=== PATIENT | male | born 1935 | race Caucasian/White ===

== ENCOUNTER 2019-04-17 16:46 | Inpatient (IN) | payer MEDICARE ==
[~2019-04-17] VITALS: Ht 165.1 cm; Wt 57.6 kg
--- NOTE | 2019-04-17 18:09 | Diagnostic Imaging Report ---
EXAMINATION: CHEST SINGLE (PORTABLE) INDICATION: Can't eat. Weakness. COMPARISON: None FINDINGS: AP view TUBES and LINES: None. LUNGS: Lungs are hyper inflated. Airspace opacities in the left lung base. PLEURA: Trace pleural effusion. Left hemidiaphragm is obscured. HEART AND MEDIASTINUM: The cardiomediastinal silhouette is unremarkable. There are atherosclerotic calcifications within the aorta. BONES AND SOFT TISSUES: No acute osseous lesion. Soft tissues are unremarkable. UPPER ABDOMEN: No free air under the diaphragm. IMPRESSION: 1. Airspace opacity in the left lung base with likely small left pleural effusion. This likely represents pneumonia. 2. Trace right pleural effusion. Signed by: Dr. Dago Ch M.D. on 04/17/2019 6:06 PM
--- NOTE | 2019-04-17 18:16 | Diagnostic Imaging Report ---
Exam: Head CT without contrast History: Altered mental status Comparison studies: None Technique: Axial images were obtained from the skull base to the vertex. Coronal and sagittal images reconstructed from the axial data. Dose modulation, iterative reconstruction, and/or weight based adjustment of the mA/kV was utilized to reduce the radiation dose to as low as reasonably achievable. Radiation dose: Total DLP: 921 mGy*cm. Estimated effective dose: DLP x 0.015 Intravenous contrast: None Findings: Scalp: No abnormalities. Bones: No fractures, blastic or lytic lesions. Brain sulci: Mildly prom Ventricles: Mild compensatory dilatation. No hydrocephalus. Extra-axial spaces: No masses, no fluid collection. Parenchyma: No mass, acute hemorrhage or acute or chronic cord vascular insults. A few scattered hypodensities in the supratentorial white matter are nonspecific but most compatible with chronic small vessel ischemic changes. Sellar/suprasellar region: No abnormalities. Craniocervical junction: Patent foramen magnum. No Chiari one malformation. Incidental findings: Lens replacements for previous cataract surgery Atherosclerotic calcifications in the carotid siphons. IMPRESSION: No acute intracranial abnormalities. Chronic findings: 1. Mild generalized brain volume loss. 2. Mild microvascular ischemic changes. Signed by: Dr. Jean Pierre Vee M.D. on 04/17/2019 6:12 PM
[2019-04-17 18:25] LABS: BASOPHILS % 0.4 % (0.0-1.0); EOSINOPHILS # (AUTO) 0.2 (0.0-0.4); EOSINOPHILS % 3.7 % (0.0-6.0); HEMATOCRIT 32.2 % (38.2-49.6); LYMPHOCYTES # (AUTO) 0.9 (1.0-3.2); LYMPHOCYTES % 20.5 % (18.0-39.1); MEAN CORPUSCULAR HEMOGLOBIN 32.1 pg (28-32); MEAN CORPUSCULAR HGB CONC 34.2 g/dL (31-35); MEAN CORPUSCULAR VOLUME 93.9 fL (81-99); MONOCYTES # (AUTO) 0.5 (0.2-0.8); MONOCYTES % 10.9 % (4.4-11.3); NEUTROPHILS # (AUTO) 2.9 (2.1-6.9); NEUTROPHILS % 64.1 % (38.7-80.0); PLATELET COUNT 147 x10e3/uL (140-360); RED BLOOD COUNT 3.43 x10e6/uL (4.3-5.7); RED CELL DISTRIBUTION WIDTH 13.6 % (11.7-14.4)
[2019-04-17 18:38] LABS: INR 0.95; PROTHROMBIN TIME 13.2 seconds (11.9-14.5)
[2019-04-17 18:44] LABS: ALBUMIN 3.4 g/dL (3.5-5.0); ANION GAP 18.3 mmol/L (8-16); CALCIUM 9.5 mg/dL (8.4-10.2); CREATININE, SERUM 1.46 mg/dL (0.72-1.25); POTASSIUM 4.3 mmol/L (3.5-5.1)
[2019-04-17] MEDS ORDERED: IPRATROPIUM BROMIDE 0.02% 2.5 ML NEB NEB PRN (19:00)
[2019-04-17] MEDS ORDERED: ALBUTEROL SULF 0.083% NEB SOLN 3 ML NEB NEB PRN (19:00)
[2019-04-17 19:03] LABS: CREATINE KINASE MB 0.7 ng/mL (0-5.0); THYROID STIMULATING HORMONE 4.311 uIU/mL (0.350-4.940)
[2019-04-17] MEDS: SODIUM CHLORIDE 0.9% 1000ML 1,000 ML IV SCH (19:20)
--- OUTSIDE RECORDS SUMMARY | 2019-04-17 19:20 | XMS REPORT ---
[facility] Address Unknown Phone Unavailable Care Team Providers Care Winder Tender Name Role Phone Arina LIPSCOMB Unavailable Unavailable Problems This patient has no known problems. Allergies, Adverse Reactions, Alerts This patient has no known allergies or adverse reactions. Medications This patient has no known medications. Results Test Description Test Time Test Comments Text Results Atomic Results Result Comments CT BRAIN WO 2019-04-17 18:09:00 [facility] [address] [place] [address] Patient Name: DHRUV MENDEZ MR #: [id number] : 1935 Age/Sex: 83/M Req #: [id number] Adm Physician: Ordered by: SHEILA PINEDA GLASS SCULLION Report #: [id number] Location: ER Room/Bed: Procedure: [id number] CT/CT BRAIN WO Exam Date: 04/17/19 Exam Time: 1725 REPORT STATUS: Signed Exam: Head CT without contrast History: Altered mental st atus Comparison studies: None Technique: Axial images were obtained from the skull base to the vertex. Coronal and sagittal images reconstructed from the axial data. Dose modulation, iterative reconstruction, and/or weight based adjustment of the mA/kV was utilized to reduce the radiation dose to as low as reasonably achievable. Radiation dose: Total DLP: 921 mGy*cm. Estimated effective dose: DLP x 0.015 Intravenous contrast: None Findings: Scalp: No abnormalities. Bones: No fractures, blastic or lytic lesions. Brain sulci: Mildly prom Ventricles: Mild compensatory dilatation. No hydrocephalus. Extra-axial spaces: No masses, no fluid collection. Parenchyma: No mass, acute hemorrhage or acute or chronic cord vascular insults. A few scattered hypodensities in the supratentorial white matter are nonspecific but most compatible with chronic small vessel ischemic changes. Sellar/suprasellar region: No abnormalities. Crani ocervical junction: Patent foramen magnum. No Chiari one malformation. Incidental findings: Lens replacements for previous cataract surgery Atherosclerotic calcifications in the carotid siphons. IMPRESSION: No acute intracranial abnormalities. Chronic findings: 1. Mild generalized brain volume loss. 2. Mild microvascular ischemic changes. Signed by: Dr. Janae Vee M.D. on 04/17/2019 6:12 PM Dictated By: JANAE VEE MD 11 Transcribed By: ROSALIE on 04/17/191811 COPY TO: SHEILA PINEDA NP CHEST SINGLE (PORTABLE) 2019-04-17 18:05:00 [place] [address] Patient Name: DHRUV MENDEZ MR #: [id number] : 1935 Age/Sex: 83/M Req #: [id number] Adm Physician: Ordered by: SHEILA PINEDA NP Report #: [id number] Location: ER Room/Bed: Procedure: [id number] DX/CHEST SINGLE (PORTABLE) Exam Date: 04/17/19 Exam Time: 1725 REPORT STATUS: Signed EXAMINATION: CHEST SINGLE (PORTABLE) I NDICATION: Can't eat. Weakness. COMPARISON: None FINDINGS: AP view TUBES and LINES: None. LUNGS: Lungs are hyper inflated. Airspace opacities in the left lung base. PLEURA: Trace pleural effusion. Left hemidiaphragm is obscured. HEART AND MEDIASTINUM: The cardiomediastinal silhouette is unremarkable. There are atherosclerotic calcifications within the aorta. BONES AND SOFT TISSUES: No acute osseous lesion. Soft tissues are unremarkable. UPPER ABDOMEN: No free air under the diaphragm. IMPRESSION: 1. Airspace opacity in the left lung base with likely small left pleural effusion. This likely represents pneumonia. 2. Trace right pleural effusion. Signed by: Dr. Shalini Mora M.D. on 04/17/2019 6:06 PM Dictated By: SHALINI MORA MD 05 Transcribed By: ROSALIE on 04/17/191805 COPY TO: SHEILA PINEDA NP
[2019-04-17] MEDS: CEFTRIAXONE SOD 1 GM/NS 50 ML 50 ML IV SCH (19:21)
[2019-04-17] MEDS ORDERED: ALBUTEROL/IPRATROPIUM 3 ML NEB NEB PRN (19:30)
[2019-04-17] MEDS ORDERED: MULTI-VITAMIN1 EACH (19:40)
[2019-04-17] MEDS ORDERED: METFORMIN HCL500 MG PO (19:40)
[2019-04-17] MEDS ORDERED: NIFEDIPINE ER30 M1 PO (19:40)
[2019-04-17] MEDS ORDERED: FAMOTIDINE20 MG PO ×2 (19:40)
[2019-04-17] MEDS ORDERED: LOVASTATIN40 MG PO (19:40)
[2019-04-17] MEDS ORDERED: MYSOLINE250 MG PO (19:40)
[2019-04-17] MEDS ORDERED: METOPROLOL SUCC50 MG PO (19:40)
[2019-04-17] MEDS ORDERED: ASPIRIN81 MG PO (19:40)
[2019-04-17] MEDS ORDERED: NIFEDIPINE CR 30 MG TAB PO ONE (20:00)
[2019-04-17] MEDS ORDERED: NIFEDIPINE 10 MG CAP PO ONE (20:00)
[2019-04-17] MEDS: AZITHROMYCIN 500MG/NS 250 ML 250 ML IV SCH (20:10)
[2019-04-17 23:45] VITALS: BP_SYST 168; BP_SYST 171; BP_DIAS 77; BP_DIAS 88
--- NOTE | 2019-04-17 23:45 | NUR ---
PATIENT RECEIVED FROM EMERGENCY DEPARTMENT PER STRETCHER AT 2230. HE'S ALERT AND ORIENTED TO SELF, PLACE AND TIME. LUNGS SOUNDS CLEAR, BRUISES TO THE ARMS, SMALL SORE TO THE RIGHT MINOR WITH SCAB INTACT AND REDNESS TO THE SACRUM. NON PITTING EDEMA TO THE FEET, THE LEGS ARE COOL TO TOUCH, UNABLE TO PALPATE THE PULSES IN THE FEET, HOWEVER THE PULSES ARE ASSESSED USING DOPPLER. PATIENT DENIES PAIN, CALL LIGHT AND URINAL WITHIN EASY REACH, FAMILY MEMBERS AT THE BEDSIDE.
[2019-04-18] VITALS (9 sets, daily range): BP systolic 142–199; BP diastolic 74–85
[2019-04-18] MEDS ORDERED: VITAMIN D400 UNIT PO (00:56)
--- NOTE | 2019-04-18 03:43 | NUR ---
PATIENT SOUNDLY ASLEEP, NO RESPIRATORY DISTRESS OBSERVED. BED ALARM ON, CALL LIGHT WITHIN EASY REACH.
--- NOTE | 2019-04-18 05:15 | NUR ---
AT 0440 THE BED ALARM WENT OFF, PRIMARY NURSE RAN TO THE ROOM AND FOUND THE SITTING ON THE FLOOR. HE STATED "I WAS TRYING TO REACH OUT FOR SOMETHING". HIS DIAPER WAS DRY, URINAL OFFER AND HE VOID SMALL AMOUNT OF YELLOW COLOR URINE. HIS IV WAS NOTED OUT, SKIN ASSESSED, NO NEW BRUISES OR OPEN AREAS NOTED. HE WAS ASSISTED BACK TO THE BED. HE'S ALERT AND ORIENTED X3, HE DENIES PAIN, VITAL SIGNS STABLE. PATIENT ATTEMPTING TO GET OUT OF BED AGAIN IN MY PRESENCE. HE'S ASSISTED TO THE WHEEL CHAIR, O2@2L/NC AND HE'S BROUGHT TO THE NURSES STATION FOR CLOSE OBSERVATION. CALL AND SPOKE WITH DR REYNOLDS, NEW ORDERS RECEIVED.
[2019-04-18 05:58] LABS: BASOPHILS % 0.6 % (0.0-1.0); EOSINOPHILS # (AUTO) 0.2 (0.0-0.4); EOSINOPHILS % 3.2 % (0.0-6.0); HEMATOCRIT 34.1 % (38.2-49.6); HEMOGLOBIN 11.3 g/dL (14.0-18.0); LYMPHOCYTES # (AUTO) 1.3 (1.0-3.2); LYMPHOCYTES % 19.3 % (18.0-39.1); MEAN CORPUSCULAR HEMOGLOBIN 31.4 pg (28-32); MEAN CORPUSCULAR HGB CONC 33.1 g/dL (31-35); MEAN CORPUSCULAR VOLUME 94.7 fL (81-99); MONOCYTES # (AUTO) 0.8 (0.2-0.8); MONOCYTES % 11.5 % (4.4-11.3); NEUTROPHILS # (AUTO) 4.3 (2.1-6.9); NEUTROPHILS % 64.8 % (38.7-80.0); PLATELET COUNT 148 x10e3/uL (140-360); RED CELL DISTRIBUTION WIDTH 13.4 % (11.7-14.4)
[2019-04-18 06:14] LABS: CALCIUM 8.9 mg/dL (8.4-10.2); CREATININE, SERUM 1.22 mg/dL (0.72-1.25)
[2019-04-18 06:41] LABS: CREATINE KINASE MB 0.9 ng/mL (0-5.0)
--- NOTE | 2019-04-18 07:36 | NUR ---
CHANGE OF SHIFT WALKING ROUNDS MADE, SITTER WITH THE PATIENT. HIS CONDITION IS STABLE WITHOUT RESPIRATORY DISTRESS AND HE DENIES PAIN. IV #22 GAUGE INSERTED TO THE LEFT HAND, PATIENT TOLERATED PROCEDURE WELL. HE'S NOW LEAVING THE UNIT TO RADIOLOGY FOR CT SCAN ORDERED.
[2019-04-18] MEDS: CEFTRIAXONE SOD 1 GM/NS 50 ML 50 ML IV SCH ×2 (08:07→18:13)
--- NOTE | 2019-04-18 08:33 | Diagnostic Imaging Report ---
EXAM: CT Pelvis WITHOUT contrast INDICATION: ^FALL ^Y COMPARISON: None. TECHNIQUE: The pelvis was scanned utilizing a multidetector helical scanner without administration of IV contrast. Absence of intravenous contrast decreases sensitivity for detection of focal lesions and vascular pathology. Coronal and sagittal reformations were obtained. Routine protocol was performed. IV CONTRAST: None. ORAL CONTRAST: None RADIATION DOSE: Total DLP: 122.3 mGy*cm Estimated effective dose: (DLP x 0.015 x size factor) mSv COMPLICATIONS: None FINDINGS: LINES and TUBES: None. GI TRACT: The partially visualized bowel appears unremarkable. PELVIC ORGANS/BLADDER: Multiple metallic seeds in the prostate. The urinary bladder is moderately distended. LYMPH NODES: No lymphadenopathy. VESSELS: Unremarkable. PERITONEUM / RETROPERITONEUM: No free air or fluid. BONES: Unremarkable. SOFT TISSUES: Unremarkable. IMPRESSION: No acute abnormalities within the pelvis. Signed by: Dr. Sandra Lopez M.D. on 04/18/2019 8:30 AM
--- NOTE | 2019-04-18 08:41 | Diagnostic Imaging Report ---
Exam: Head CT without contrast History: Multiple fall today, altered mental status Comparison studies: Head CT 04/17/2019 Technique: Axial images were obtained from the skull base to the vertex. Coronal and sagittal images reconstructed from the axial data. Dose modulation, iterative reconstruction, and/or weight based adjustment of the mA/kV was utilized to reduce the radiation dose to as low as reasonably achievable. Radiation dose: Total DLP: 921 mGy*cm. Estimated effective dose: DLP x 0.015 Intravenous contrast: None Findings: Scalp: No abnormalities. Bones: No fractures, blastic or lytic lesions. Brain sulci: Mildly prominent. Ventricles: Mild compensatory dilatation. No hydrocephalus. Extra-axial spaces: No masses, no fluid collection. Parenchyma: No mass, acute hemorrhage or acute or chronic cortical insults. A few scattered ill-defined hypodensities in the supratentorial white matter are nonspecific but are most compatible with chronic microvascular ischemic changes. Tiny chronic right cerebellar insult is retrospectively visualized on the prior exam. Sellar/suprasellar region: No abnormalities. Craniocervical junction: Patent foramen magnum. No Chiari one malformation. Incidental findings: Limbs replacements for previous cataract surgery Atherosclerotic calcifications in the carotid siphons.. IMPRESSION: No acute intracranial abnormalities. Chronic findings: 1. Mild parenchymal volume loss. 2. Mild microvascular ischemic changes. 3. Tiny right cerebellar insult. Signed by: Dr. Jean Pierre Vee M.D. on 04/18/2019 8:38 AM
--- NOTE | 2019-04-18 08:52 | Diagnostic Imaging Report ---
EXAMINATION: CHEST SINGLE (PORTABLE) INDICATION: ^PNEMONIA ^[id number] ^0730 ^Y COMPARISON: Chest radiograph 04/17/2019 FINDINGS: AP view TUBES and LINES: None. LUNGS: Lungs are well inflated. Left lower lobe consolidation, unchanged. Mild reticular opacities in the right lower lobe, unchanged. There appears to be fewer scattered calcified granulomas throughout the right lung. Mild scarring in both upper lobes is better seen on prior exam. PLEURA: Small left pleural effusion, unchanged. No pneumothorax. HEART AND MEDIASTINUM: The cardiomediastinal silhouette is unremarkable.. BONES AND SOFT TISSUES: No acute osseous lesion. Soft tissues are unremarkable. UPPER ABDOMEN: No free air under the diaphragm. IMPRESSION: Left lower lobe consolidation with adjacent small left pleural effusion consistent with pneumonia. Recommend follow-up until resolution. Signed by: Dr. Sandra Lopez M.D. on 04/18/2019 8:48 AM
[2019-04-18] MEDS: AZITHROMYCIN 500MG/NS 250 ML 250 ML IV SCH (09:34)
[2019-04-18] MEDS: SODIUM CHLORIDE 0.9% 1000ML 1,000 ML IV SCH ×2 (09:34→15:16)
[2019-04-18] MEDS ORDERED: DEXTROSE 50% SYRINGE 50 ML IV PRN (13:30)
[2019-04-18 14:16] LABS: CREATINE KINASE MB 0.9 ng/mL (0-5.0)
--- NOTE | 2019-04-18 16:07 | Progress Note ---
DATE: ADDENDUM: I had a long discussion with the patient's daughter at bedside in terms of code status. According to her, the patient always wanted to be DNR. She does not want any CPR or any intubation. She does not have any medical power of commercial attorney paperwork or any advance directives available at this time. The patient is only alert and oriented x2, and next of kin is the daughter who is currently at bedside. At this time, DNR has been placed in the system as per daughter's wishes and according to her that was his wishes in the past as well. MD CHITO Blandon/MODL /[id number]
[2019-04-18] MEDS: NIFEDIPINE CR 30 MG TAB PO SCH (16:28)
[2019-04-18] MEDS: FAMOTIDINE 20 MG TAB PO SCH (16:28)
[2019-04-18] MEDS ORDERED: PRIMIDONE 50 MG TAB PO SCH (17:00)
[2019-04-18] MEDS ORDERED: METFORMIN HCL 500 MG TAB PO SCH (17:00)
--- NOTE | 2019-04-18 19:00 | NUR ---
BEDSIDE SHIFT REPORT PERFORMED, RECEIVED PT LAYING SEMI FOWLERS IN BED, RESTING, 16RR/MIN. RR EVEN AND NON-LABORED, O2 BY NC AT 3L. NO S/SX OF DISTRESS NOTED. SITTER AT BEDSIDE. LEFT PT LAYING SEMI FOWLERS IN BED, BED IN LOW LOCKED POSITION, SIDE RAILS UPX2, CALL LIGHT AND PHONE WITHIN REACH.
--- NOTE | 2019-04-18 19:08 | NUR ---
SHIFT CHANGE REPORT GIVEN TO CRICKET Snell RN.
--- NOTE | 2019-04-18 20:43 | History and Physical ---
CHIEF COMPLAINT: Frequent falls. HISTORY OF PRESENT ILLNESS: This is an 83-year-old male who has a history of type 2 diabetes and hypertension who apparently according to the daughter, very poor historian. He has been having multiple falls and questionable confusion over the last 2-3 weeks. After further investigation, it seems that this patient has been having worsening confusion over the last several months because she cannot even recall when the last time she had a pure conversation with her father. He was never diagnosed with any dementia in the past. Based on the story and talking to her, it seems like her father has been progressively getting worse in terms of his memory as well as with his ambulation, which is towards dementia. She denies any slurred speech, facial drooping, any weakness, or any seizure-like activity. No reports of chest pain or palpitations. On arrival here, he was found to have a pulmonary infiltrate concerning for underlying infection leading to his underlying frequent falls and confusion. The patient was seen and evaluated at bedside. He was alert, awake, and oriented x2. Evaluated at bedside. All questions were answered at bedside. According to the daughter, the patient always wanted to be DNR. He does not have any documentation available at this time. The next of kin is the daughter. The patient is still confused, unable to get true information from him. According to the daughter, the patient wanted to be DNR. The DNR order has been placed in the system. REVIEW OF SYSTEMS: Pertinent positives: Frequent falls, confusion, cough, and congestion. Pertinent negatives: Denies any chest pain, palpitation, dysuria, hematuria, frequency, urgency, lightheadedness, dizziness, abdominal pain, headaches, shortness of breath, cough, congestion, fever, or any other complaints. The rest of 14-point review of systems has been reviewed with the patient and is negative. ALLERGIES: NO KNOWN DRUG ALLERGIES. HOME MEDICATIONS: Aspirin 81 mg daily, Pepcid 20 mg b.i.d., lovastatin 40 mg daily, metformin 500 mg p.o. b.i.d., metoprolol ER 50 mg daily, and nifedipine 60 mg p.o. b.i.d. PAST MEDICAL HISTORY: Hypertension, type 2 diabetes, likely underlying dementia, and frequent falls. PAST SURGICAL HISTORY: Unknown. FAMILY HISTORY: Hypertension and diabetes. SOCIAL HISTORY: Lives with his daughter. No reports of drugs or any alcohol. PHYSICAL EXAMINATION: VITAL SIGNS: Temperature is 97.6, pulse 82, respiratory rate is 20, blood pressure 142/74, and pulse ox 100% on room air. GENERAL: Not in acute distress. Alert and oriented x3. Cooperative on examination. HEENT: Head is normocephalic and atraumatic. Eyes; pupils are equal, round and reactive to light bilaterally. Extraocular movements are intact bilaterally. Throat, no evidence of any erythema or exudates in the posterior pharynx. Has poor dentition. NECK: Supple. Good range of motion throughout. PULMONARY: Clear to auscultation bilaterally. No wheezing, no rales, no rhonchi, and no crackles appreciated. CARDIOVASCULAR: Positive S1, S2. No murmurs, rubs, or gallops appreciated. ABDOMEN: Soft, nondistended, and nontender to palpation. Bowel sounds present. MUSCULOSKELETAL: Strength is 5/5 throughout. No evidence of any muscle deficits on examination. No weakness appreciated. NEUROLOGICAL: Cranial nerves II through XII grossly intact. No evidence of any neurological deficits on exam. SKIN: Intact. Warm to touch. Good capillary refill. PSYCHIATRIC: Normal affect and mood. EXTREMITIES: No edema. Good range of motion throughout. LABORATORY DATA: Lab findings show white count 6.5, hemoglobin 11.0, hematocrit 34, platelets of 148. Coagulation, PT 13, INR 0.95, PTT 32. Chemistry, sodium 144, potassium 4, chloride 108, bicarb 21, anion gap 19, BUN is 18, creatinine 1.2, glucose is 164. Troponins were negative. BNP is 247. Albumin is 3.4. TSH is 4.3. MICROBIOLOGY: None. IMAGING STUDIES: Chest x-ray, airspace opacity in the left lung base likely shows small pleural effusion. Likely represent pneumonia. CT brain, no acute abnormality seen. Chest x-ray, left lower lobe consolidation with adjacent small left pleural effusion consistent with pneumonia. CT pelvis negative. CT brain repeat after the patient had a fall, shows no acute abnormality. IMPRESSION: 1. Metabolic encephalopathy likely due to be from infection from community-acquired pneumonia. 2. Community-acquired pneumonia. Likely baseline dementia with worsening cognition. 3. Type 2 diabetes. 4. Hypertension. PLAN: At this time, we will continue with IV antibiotics. CT brain x2 was negative and he had a fall last night that showed no acute findings. But due to the fact that the daughter was so demanding about further workup, I will do not feel like I will be able to convince her. I will go ahead and get an MRI of the brain. I do not feel like the patient has any stroke-like symptoms on examination. No slurred speech, no facial drooping, no weakness anywhere and his progressive decline has been like this for weeks now. I will go ahead and order an MRI of the brain. Restart all home medications. There was no UA performed in the ER. We will go ahead and get that done as well. Blood cultures were not performed prior to any antibiotics. The UA will likely be sterile and the patient was already given antibiotics by the ER. Get PT, OT evaluation. Case management for fdc facility placement. MD CHITO Blandon/PUSHPA /[id number]
[2019-04-18 22:41] LABS: BILIRUBIN,URINE NEGATIVE (NEGATIVE); CLARITY,URINE CLEAR (CLEAR); COLOR,URINE YELLOW (YELLOW); KETONES,URINE 1+ (NEGATIVE); LEUKOCYTE ESTERASE ,URINE SMALL (NEGATIVE); NITRITE,URINE NEGATIVE (NEGATIVE); PROTEIN,URINE DIPSTICK NEGATIVE (NEGATIVE); URINE UROBILINOGEN 0.2 mg/dL (0.2 - 1)
[2019-04-18 22:52] LABS: BACTERIA,URINE MANY /HPF; EPITHELIAL CELLS,URINE MODERATE /LPF; RBC,URINE >50 /HPF (0-5)
[2019-04-19 00:30] VITALS: BP 162/76
--- NOTE | 2019-04-19 00:30 | NUR ---
APPLIED ALTERNATING PRESSURE PUMP TO MATTRESS.
[2019-04-19] MEDS: SODIUM CHLORIDE 0.9% 1000ML 1,000 ML IV SCH ×2 (01:56→22:46)
[2019-04-19 06:14] LABS: BASOPHILS % 0.4 % (0.0-1.0); EOSINOPHILS # (AUTO) 0.3 (0.0-0.4); EOSINOPHILS % 5.7 % (0.0-6.0); HEMATOCRIT 28.6 % (38.2-49.6); HEMOGLOBIN 9.4 g/dL (14.0-18.0); LYMPHOCYTES # (AUTO) 1.1 (1.0-3.2); LYMPHOCYTES % 19.9 % (18.0-39.1); MEAN CORPUSCULAR HEMOGLOBIN 31.2 pg (28-32); MEAN CORPUSCULAR HGB CONC 32.9 g/dL (31-35); MONOCYTES # (AUTO) 0.6 (0.2-0.8); MONOCYTES % 11.2 % (4.4-11.3); NEUTROPHILS # (AUTO) 3.4 (2.1-6.9); NEUTROPHILS % 62.6 % (38.7-80.0); PLATELET COUNT 117 x10e3/uL (140-360); RED BLOOD COUNT 3.01 x10e6/uL (4.3-5.7); RED CELL DISTRIBUTION WIDTH 13.6 % (11.7-14.4)
[2019-04-19] MEDS: CEFTRIAXONE SOD 1 GM/NS 50 ML 50 ML IV SCH ×2 (06:30→18:55)
[2019-04-19 06:35] LABS: ANION GAP 12.8 mmol/L (8-16); BLOOD UREA NITROGEN 18 mg/dL (7-26); BUN/CREATININE RATIO 17 (6-25); CALCIUM 8.2 mg/dL (8.4-10.2); CARBON DIOXIDE 24 mmol/L (22-29); CHLORIDE 111 mmol/L (98-107); CREATININE, SERUM 1.03 mg/dL (0.72-1.25); EST GLOMERULAR FILTRATION RATE > 60 ML/MIN (60-); GLUCOSE 79 mg/dL (74-118); POTASSIUM 3.8 mmol/L (3.5-5.1); SODIUM 144 mmol/L (136-145)
--- NOTE | 2019-04-19 07:25 | NUR ---
PATIENT IN BED RESTING WITH EYES CLOSED, NO RESPIRATORY DISTRESS OBSERVED. 1:1 SITTER AT BED SIDE. O2 IN PLACE VIA N/C, IV FLUID IN PROGRESS. BED IN LOWER POSITION AND LOCKED, CALL LIGHT AT REACH.
[2019-04-19 07:30] VITALS: BP 193/90
[2019-04-19 07:38] VITALS: BP 193/90
--- NOTE | 2019-04-19 08:58 | Diagnostic Imaging Report ---
History:Fall, hit face last night. Comparison studies: None Technique: Axial images were obtained through the maxillofacial region. Coronal and sagittal images reconstructed from the axial data. Intravenous contrast: None Dose modulation, iterative reconstruction, and/or weight based adjustment of the mA/kV was utilized to reduce the radiation dose to as low as reasonably achievable. Findings: Soft tissues: No abnormalities. Bones: No fractures or bone abnormalities. Orbits: Globes: No acute abnormality. Bilateral cataract surgery changes. Extra or intraconal abnormalities: None. Paranasal sinuses: Clear Atherosclerotic calcifications of the carotid bulbs and carotid siphons. Degenerative changes of the upper cervical spine partially visualized. IMPRESSION: 1. No acute facial abnormality Signed by: DR Chirag Guerrier M.D. on 04/19/2019 8:54 AM
[2019-04-19] MEDS: NIFEDIPINE CR 30 MG TAB PO SCH ×2 (09:38→17:47)
[2019-04-19] MEDS: METOPROLOL SUCCINATE 50 MG TAB XL PO SCH (09:38)
[2019-04-19] MEDS: AZITHROMYCIN 500MG/NS 250 ML 250 ML IV SCH (09:38)
[2019-04-19] MEDS: FAMOTIDINE 20 MG TAB PO SCH ×2 (09:38→17:47)
[2019-04-19] MEDS: ASPIRIN 81 MG CHEW TAB PO SCH (09:38)
--- NOTE | 2019-04-19 11:19 | NUR ---
CALL RECEIVED FROM RADIOLOGY STATING THAT PATIENT WILL BE GOING FOR MRI OF BRAIN AROUND 1430. PATIENT NOTIFIED, IN BED WITH CALL LIGHT AT REACH. 1:1 SITTER AT BED SIDE.
[2019-04-19 11:25] VITALS: BP 157/73
--- NOTE | 2019-04-19 13:23 | Progress Note ---
DATE: 04/19/2019 Medicine Progress Note SUBJECTIVE: The patient was working with physical therapy this morning. He is very weak and cachectic on exam. I feel like the patient likely has some underlying dementia, which the daughter is in denial. No overnight events. Vital signs were stable. PHYSICAL EXAMINATION: VITAL SIGNS: Temperature 98.8, pulse 74, respiratory rate 18, blood pressure is 157/73, pulse ox 100% on 3 L nasal cannula. GENERAL: Not in acute distress. Alert and oriented x3. Cooperative on examination. HEENT: Head is normocephalic and atraumatic. Eyes; pupils are equal, round and reactive to light bilaterally. Extraocular movements are intact bilaterally. Throat, no evidence of any erythema or exudates in the posterior pharynx. Has poor dentition. NECK: Supple. Good range of motion throughout. PULMONARY: Clear to auscultation bilaterally. No wheezing, no rales, no rhonchi, and no crackles appreciated. CARDIOVASCULAR: Positive S1, S2. No murmurs, rubs, or gallops appreciated. ABDOMEN: Soft, nondistended, and nontender to palpation. Bowel sounds present. MUSCULOSKELETAL: Strength is 5/5 throughout. No evidence of any muscle deficits on examination. No weakness appreciated. NEUROLOGICAL: Cranial nerves II through XII grossly intact. No evidence of any neurological deficits on exam. SKIN: Intact. Warm to touch. Good capillary refill. PSYCHIATRIC: Normal affect and mood. EXTREMITIES: No edema. Good range of motion throughout. LABORATORY DATA: Lab findings show white count of 5.4, hemoglobin 9.4, hematocrit 28.6, platelets of 117. Chemistries reviewed and stable. Urinalysis reviewed. Urine cultures are pending. IMPRESSION: 1. Metabolic encephalopathy secondary to community-acquired pneumonia and also secondary to underlying dementia. 2. Community-acquired pneumonia. 3. Type 2 diabetes. 4. Hypertension. 5. Likely baseline dementia with progression. PLAN: At this time, we will continue with IV antibiotics. Urine cultures are pending. CT brain x2 is negative. MRI of the brain has been ordered. CT of the face was negative. He is working with PT and OT. Order for group home has been placed and Case Management has been notified. We will await for the urine culture. Continue working with PT and OT. Once he is approved, hopefully we can discharge in the next 2 to 3 days. MD CHITO Blandon/PUSHPA /[id number]
--- NOTE | 2019-04-19 14:36 | NUR ---
ORDERS FOR SNF EVAL CM MET WITH PT'S DTR MARGARITO MENDEZ AND SHE CHOSE [facility] CHOICE LETTER SIGNED RTF PLACED IN PACKET AT [facility]K [facility] WITH [facility] COMING TO GET CLINICALS BARRIER TO TRANSFER TO SNF IS ONE ON ONE SITTER ORDERED PRN P.T. EVAL PENDING
--- NOTE | 2019-04-19 14:37 | NUR ---
PATIENT OFF UNIT TO RADIOLOGY.
--- NOTE | 2019-04-19 14:39 | NUR ---
OUT OF HOSPITAL DNR PLACED ON FRONT OF CHART FOR DR REYNOLDS TO SIGN 1 ON 1 SITTER CHANGED TO PRN ASKED NURSE YAMIL TO MOVE PT NEAR NURSES STATION AND PUT ON BED ALARM IF POSSIBLE
--- NOTE | 2019-04-19 15:18 | NUR ---
PATIENT BACK TO UNIT FROM RADIOLOGY. IN BED WITH CALL LIGHT AT REACH. SITTER AT BED SIDE.
[2019-04-19 15:43] VITALS: BP 176/81
--- NOTE | 2019-04-19 16:05 | Diagnostic Imaging Report ---
History: Confused Comparison studies: CT head 04/18/2019 Technique: Sagittal T2; axial DWI, FLAIR, MPGR, T1, Coronal FLAIR. Intravenous contrast: None Findings: Scalp: Normal in signal . No masses . Bone marrow: Normal in signal intensity. Extra-axial: No masses, no fluid collections. Brain sulci: Moderately prominent. Ventricles: Mildly prominent . No hydrocephalus . Parenchyma: Scattered and confluent T2/flair hyperintensities of the periventricular and deep white matter. Similar changes at the alfredo No masses, hemorrhage, acute or chronic vascular insults. Suprasellar region: No abnormalities. Craniocervical junction: No abnormalities. Patent foramen magnum. No Chiari one malformation. Vessels: Normal flow-voids in the arteries and sinuses. Bilateral cataract surgery changes. IMPRESSION: 1. No acute abnormalities. 2. Moderate chronic microvascular ischemic changes of the white matter and moderate diffuse volume loss Signed by: DR Chirag Guerrier M.D. on 04/19/2019 4:01 PM
[2019-04-19] MEDS: PRIMIDONE 250 MG TABLET PO SCH (17:47)
[2019-04-19 20:10] VITALS: BP 113/74
[2019-04-19] MEDS: SIMVASTATIN 40 MG TAB PO SCH (20:10)
--- NOTE | 2019-04-19 20:10 | NUR ---
PATIENT IN BED RESTING WITH EYES CLOSED, NO RESPIRATORY DISTRESS NOTED. 1:1 SITTER AT BED SIDE. NASAL CANNULA IS INTACT, NO COMPLAINTS OF PAIN. BED IN LOWER POSITION AND LOCKED, CALL LIGHT AT REACH, WILL CONTINUE TO MONITOR.
--- NOTE | 2019-04-19 20:45 | NUR ---
PATIENT COMPLAINED OF DRY NOSTRILS FROM NASAL CANNULA. AFTER OBSERVING PATIENT ALSO HAD TRACES OF LIGHT BLOOD IN NASAL AREA. CALLED RESPIRATORY FOR HUMIDIFIER, WILL CONTINUE TO MONITOR THE SITUATION.
--- NOTE | 2019-04-19 21:00 | NUR ---
RESPIRATORY HAS ARRIVED WITH HUMIDIFIER FOR PATIENT.
[2019-04-20] VITALS (9 sets, daily range): BP systolic 134–190; BP diastolic 65–93
--- NOTE | 2019-04-20 01:58 | NUR ---
PATIENT IS RESTING WITH BOTH EYES CLOSED. 1:1 SITTER IS STILL PRESENT, NO RESPIRATORY DISTRESS NOTED. BOTH SIDE RAILS ARE UP, BED LOCKED IN LOWEST POSITION, CALL LIGHT WITHIN REACH, WILL CONTINUE TO MONITOR.
[2019-04-20] MEDS: HYDRALAZINE HCL 20 MG/ML VIAL IV PRN (04:21)
--- NOTE | 2019-04-20 04:21 | NUR ---
PATIENT'S BLOOD PRESSURE RAN AT 185/85, NO DISTRESS NOTED. PATIENT WAS MEDICATED ORDERED, WILL CONTINUE TO MONITOR.
[2019-04-20 06:22] LABS: BASOPHILS % 0.2 % (0.0-1.0); EOSINOPHILS # (AUTO) 0.2 (0.0-0.4); EOSINOPHILS % 1.8 % (0.0-6.0); HEMATOCRIT 31.5 % (38.2-49.6); HEMOGLOBIN 10.8 g/dL (14.0-18.0); LYMPHOCYTES # (AUTO) 1.2 (1.0-3.2); LYMPHOCYTES % 11.2 % (18.0-39.1); MEAN CORPUSCULAR HEMOGLOBIN 31.7 pg (28-32); MEAN CORPUSCULAR HGB CONC 34.3 g/dL (31-35); MEAN CORPUSCULAR VOLUME 92.4 fL (81-99); MONOCYTES # (AUTO) 0.8 (0.2-0.8); MONOCYTES % 7.9 % (4.4-11.3); NEUTROPHILS # (AUTO) 8.2 (2.1-6.9); NEUTROPHILS % 78.6 % (38.7-80.0); PLATELET COUNT 141 x10e3/uL (140-360); RED BLOOD COUNT 3.41 x10e6/uL (4.3-5.7); RED CELL DISTRIBUTION WIDTH 13.4 % (11.7-14.4)
[2019-04-20] MEDS: CEFTRIAXONE SOD 1 GM/NS 50 ML 50 ML IV SCH ×2 (06:40→19:50)
[2019-04-20 06:42] LABS: ANION GAP 15.8 mmol/L (8-16); BLOOD UREA NITROGEN 15 mg/dL (7-26); BUN/CREATININE RATIO 14 (6-25); CALCIUM 8.6 mg/dL (8.4-10.2); CARBON DIOXIDE 20 mmol/L (22-29); CHLORIDE 108 mmol/L (98-107); CREATININE, SERUM 1.05 mg/dL (0.72-1.25); EST GLOMERULAR FILTRATION RATE > 60 ML/MIN (60-); GLUCOSE 112 mg/dL (74-118); POTASSIUM 3.8 mmol/L (3.5-5.1); SODIUM 140 mmol/L (136-145)
--- NOTE | 2019-04-20 07:21 | NUR ---
PATIENT IN BED RESTING WITH NO S/S OF RESPIRATORY DISTRESS. O2 IN PLACE VIA N/C. 1:1 SITTER AT BED SIDE. BED IN LOWER POSITION, CALL LIGHT AT REACH.
[2019-04-20] MEDS: AZITHROMYCIN 500MG/NS 250 ML 250 ML IV SCH (09:07)
[2019-04-20] MEDS: FAMOTIDINE 20 MG TAB PO SCH ×2 (09:07→17:21)
[2019-04-20] MEDS: ASPIRIN 81 MG CHEW TAB PO SCH (09:07)
[2019-04-20] MEDS: PRIMIDONE 250 MG TABLET PO SCH ×2 (09:07→17:21)
[2019-04-20] MEDS: NIFEDIPINE CR 30 MG TAB PO SCH ×2 (09:08→17:22)
[2019-04-20] MEDS: METOPROLOL SUCCINATE 50 MG TAB XL PO SCH (09:09)
[2019-04-20] MEDS: ACETAMINOPHEN 325 MG TAB PO PRN (09:39)
--- NOTE | 2019-04-20 11:00 | NUR ---
PATIENT NOTED WITH TEMPERATURE OF 100.4. PRN TYLENOL GIVEN ORDERED. TEMPERATURE RECHECKED WITH THE READING OF 99.4. WILL CONTINUE TO MONITOR.
--- NOTE | 2019-04-20 13:07 | Progress Note ---
DATE: 04/20/2019 Medicine Progress Note SUBJECTIVE: The patient is doing well today with no other issues. His blood pressure was elevated. He had a low-grade temp of 100.4 this morning. No overnight events. He had a sitter at bedside. He did not try to get up out of the bed at all according to the nursing staff. PHYSICAL EXAMINATION: VITAL SIGNS: Temperature is 99.1, T-max 100.4, pulse is 93, respiratory rate 17, blood pressure was 170/92. GENERAL: Not in acute distress. Alert and oriented x3. Cooperative on examination. HEENT: Head is normocephalic and atraumatic. Eyes; pupils are equal, round and reactive to light bilaterally. Extraocular movements are intact bilaterally. Throat, no evidence of any erythema or exudates in the posterior pharynx. Has poor dentition. NECK: Supple. Good range of motion throughout. PULMONARY: Clear to auscultation bilaterally. No wheezing, no rales, no rhonchi, and no crackles appreciated. CARDIOVASCULAR: Positive S1, S2. No murmurs, rubs, or gallops appreciated. ABDOMEN: Soft, nondistended, and nontender to palpation. Bowel sounds present. MUSCULOSKELETAL: Strength is 5/5 throughout. No evidence of any muscle deficits on examination. No weakness appreciated. NEUROLOGICAL: Cranial nerves II through XII grossly intact. No evidence of any neurological deficits on exam. SKIN: Intact. Warm to touch. Good capillary refill. PSYCHIATRIC: Normal affect and mood. EXTREMITIES: No edema. Good range of motion throughout. LABORATORY DATA: Labs show white count 10.4, hemoglobin 10.8, hematocrit 31.5, platelets of 141. Chemistry; sodium 140, potassium 3.8, chloride 108, bicarb 28, anion gap of 15, BUN is 15, creatinine is 1, glucose is 112, calcium is 8.6. MICROBIOLOGY: Urine cultures no growth. IMAGING STUDIES: Brain MRI, no acute abnormality. Moderate chronic microvascular ischemic changes of white matter and moderate diffuse volume loss. IMPRESSION: 1. Metabolic encephalopathy likely has baseline dementia. 2. Community-acquired pneumonia. 3. Hypertension. 4. Type 2 diabetes. 5. Baseline dementia with worsening progression. PLAN: At this time, MRI of the brain was found to be negative. It seems like he is at his baseline with no issues. He did develop a low-grade fever today 100.4. White count is slightly elevated. We will get a.m. labs. Continue with IV antibiotics. Urine cultures are pending. Work with PT and OT. Still awaiting for [facility] facility placement. No issues at this time. Discussed plan of care with nursing staff. We will get a.m. labs. MD CHITO Blandon/MODShireen /[id number]
--- NOTE | 2019-04-20 15:35 | NUR ---
PT DISCUSSED IN BARRIER ROUNDS; ON 2 ABX, FEVER, STARTED FOCUSED CARE EVAL FOR SNF PROJECTED DC ON 25TH
--- NOTE | 2019-04-20 16:02 | NUR ---
PATIENT AMBULATED IN ROOM WITH PHYSICAL THERAPY. ASSISTED BACK TO BED, CALL LIGHT AT REACH.
[2019-04-20] MEDS: ENOXAPARIN SOD INJ 40 MG/0.4 ML SYR SC SCH (17:22)
--- NOTE | 2019-04-20 20:50 | NUR ---
PATIENT IS RESTING IN BED WATCHING TELEVISION, NO RESPIRATORY DISTRESS NOTED. 1:1 SITTER IS AT BEDSIDE, BED IN LOWEST POSITION AND LOCKED, BOTH SIDE RAILS ARE UP, CALL LIGHT WITHIN REACH, WILL CONTINUE TO MONITOR.
[2019-04-20] MEDS: SIMVASTATIN 40 MG TAB PO SCH (20:54)
--- NOTE | 2019-04-21 02:18 | NUR ---
PATIENT RESTING IN BED BOTH EYES CLOSED, NO RESPIRATORY DISTRESS NOTED. NASAL CANNULA INTACT AND FLOWING, 1:1 SITTER STILL PRESENT, CALL LIGHT WITHIN REACH, WILL CONTINUE TO MONITOR.
[2019-04-21 03:40] VITALS: BP 157/70
[2019-04-21 05:55] LABS: BASOPHILS % 0.3 % (0.0-1.0); EOSINOPHILS # (AUTO) 0.3 (0.0-0.4); EOSINOPHILS % 4.4 % (0.0-6.0); HEMATOCRIT 31.1 % (38.2-49.6); HEMOGLOBIN 10.5 g/dL (14.0-18.0); LYMPHOCYTES # (AUTO) 1.2 (1.0-3.2); LYMPHOCYTES % 18.5 % (18.0-39.1); MEAN CORPUSCULAR HEMOGLOBIN 31.8 pg (28-32); MEAN CORPUSCULAR HGB CONC 33.8 g/dL (31-35); MEAN CORPUSCULAR VOLUME 94.2 fL (81-99); MONOCYTES # (AUTO) 0.7 (0.2-0.8); MONOCYTES % 10.9 % (4.4-11.3); NEUTROPHILS # (AUTO) 4.1 (2.1-6.9); NEUTROPHILS % 65.6 % (38.7-80.0); PLATELET COUNT 137 x10e3/uL (140-360); RED CELL DISTRIBUTION WIDTH 13.7 % (11.7-14.4)
[2019-04-21 06:23] LABS: ANION GAP 15.6 mmol/L (8-16); BLOOD UREA NITROGEN 18 mg/dL (7-26); BUN/CREATININE RATIO 16 (6-25); CALCIUM 8.8 mg/dL (8.4-10.2); CARBON DIOXIDE 20 mmol/L (22-29); CHLORIDE 107 mmol/L (98-107); EST GLOMERULAR FILTRATION RATE > 60 ML/MIN (60-); GLUCOSE 99 mg/dL (74-118); POTASSIUM 3.6 mmol/L (3.5-5.1); SODIUM 139 mmol/L (136-145)
[2019-04-21 08:00] VITALS: BP 188/91
[2019-04-21] MEDS: CEFTRIAXONE SOD 1 GM/NS 50 ML 50 ML IV SCH ×2 (09:04→20:00)
[2019-04-21] MEDS: FAMOTIDINE 20 MG TAB PO SCH ×2 (09:05→17:35)
[2019-04-21] MEDS: PRIMIDONE 250 MG TABLET PO SCH ×2 (09:05→17:35)
[2019-04-21] MEDS: ASPIRIN 81 MG CHEW TAB PO SCH (09:05)
[2019-04-21] MEDS: NIFEDIPINE CR 30 MG TAB PO SCH ×2 (09:06→17:35)
[2019-04-21] MEDS: METOPROLOL SUCCINATE 50 MG TAB XL PO SCH (09:06)
[2019-04-21] MEDS: AZITHROMYCIN 500MG/NS 250 ML 250 ML IV SCH (10:03)
[2019-04-21 10:21] LABS: EOSINOPHILS % (MANUAL) 2 % (0-7); LYMPHOCYTES % (MANUAL) 15 % (19-48); MONOCYTES % (MANUAL) 13 % (3.4-9.0); NEUTROPHILS % (MANUAL) 70 % (40-74)
[2019-04-21 10:26] LABS: HYPOCHROMASIA SLIGHT; PLATELET ESTIMATE ADEQUATE; PLATELET MORPHOLOGY COMMENT NORMAL
[2019-04-21 11:33] VITALS: BP 153/85
[2019-04-21] MEDS: ACETAMINOPHEN 325 MG TAB PO PRN (11:55)
[2019-04-21 12:27] VITALS: BP 153/85
--- NOTE | 2019-04-21 13:27 | Progress Note ---
DATE: 04/21/2019 SUBJECTIVE: The patient is doing well. He is alert and oriented. He is able to talk to me x3. Occasionally, he gets confused according to the nursing staff. He is not combative, doing well with the sitter. PHYSICAL EXAMINATION: VITAL SIGNS: Temperature is 99, pulse 92, respiratory rate is 16, blood pressure is 153/85, and pulse ox 97% on 3 L nasal cannula. GENERAL: No acute distress. Alert and oriented x3. Cooperative on examination. HEENT: Head is normocephalic and atraumatic. Eyes; pupils are equal, round, and reactive to light bilaterally. Extraocular movements are intact bilaterally. Throat; no evidence of erythema or exudates in the posterior pharynx. Has poor dentition. NECK: Supple. Good range of motion. PULMONARY: Clear to auscultation bilaterally. No wheezing, no rales, no rhonchi, no crackles appreciated. CARDIOVASCULAR: Positive S1, S2. No murmurs, rubs, or gallops appreciated. ABDOMEN: Soft, nondistended, and nontender to palpation. Bowel sounds present. MUSCULOSKELETAL: Strength is 5/5 throughout. No evidence of muscles deficits on examination. No weakness appreciated. NEUROLOGICAL: Cranial nerves II through XII grossly intact. No evidence of neurological deficits on exam. SKIN: Intact. Warm to touch. Good cap refill. PSYCHIATRIC: Normal affect and mood. EXTREMITIES: No edema. Good range of motion throughout. LAB FINDINGS: White count 6.3, hemoglobin 10.5, hematocrit is 31, his platelets is 137. His coagulation; PT 13, INR 0.95, PTT 32. Chemistry; sodium 139, potassium 3.6, chloride 107, bicarb is 28, anion gap of 15, BUN is 18, creatinine is 1.1, glucose is 99, calcium is 8.8. Urinalysis seems to be negative. Urine cultures showed no growth. IMPRESSION: 1. Metabolic encephalopathy, likely secondary to underlying baseline dementia. 2. Community-acquired pneumonia. 3. Hypertension. 4. Type 2 diabetes. 5. Likely has underlying baseline dementia with worsening regression. PLAN: At this time, MRI of the brain was found to be negative. He is afebrile. White count was normal. Continue with IV antibiotics for now. Urine culture was negative. MRI of the brain was negative. Continue with IV antibiotics for now. [facility] Get a.m. labs. I discussed plan of care with daughter at the nursing station. We reviewed everything and she verbalized understanding and agrees with plan of care. MD CHITO Blandon/PUSHPA /[id number]
--- NOTE | 2019-04-21 14:10 | NUR ---
patient moved from room 292 to 298 which is closer to nurses station, No Sitter, Bed ALARM on
[2019-04-21 15:56] VITALS: BP 128/64
[2019-04-21] MEDS: ENOXAPARIN SOD INJ 40 MG/0.4 ML SYR SC SCH (17:35)
[2019-04-21 20:00] VITALS: BP 151/72
--- NOTE | 2019-04-21 20:53 | NUR ---
RECEIVED PT IN BED AOX3 .DENIES PAIN .RESPIRATIONS ARE EVEN AND UNLABORED .PT HAD BM AND CHANGED THE PT .CALL LIGHT WITH IN REACH .CONTINUE TO MONITOR
[2019-04-21] MEDS: SIMVASTATIN 40 MG TAB PO SCH (21:00)
[2019-04-22] VITALS (8 sets, daily range): BP systolic 140–171; BP diastolic 68–84
[2019-04-22] MEDS ORDERED: SODIUM CHLORIDE 0.9% 250ML 250 ML ONE (00:05)
--- NOTE | 2019-04-22 05:41 | NUR ---
PT RESTING .DENIES PAIN CALL LIGHT WITH IN REACH
[2019-04-22] MEDS: PRIMIDONE 250 MG TABLET PO SCH ×2 (08:05→18:06)
[2019-04-22] MEDS: CEFTRIAXONE SOD 1 GM/NS 50 ML 50 ML IV SCH ×2 (08:05→19:00)
[2019-04-22] MEDS: NIFEDIPINE CR 30 MG TAB PO SCH ×2 (08:05→18:06)
[2019-04-22] MEDS: FAMOTIDINE 20 MG TAB PO SCH ×2 (08:05→18:06)
[2019-04-22] MEDS: ASPIRIN 81 MG CHEW TAB PO SCH (08:05)
[2019-04-22] MEDS: METOPROLOL SUCCINATE 50 MG TAB XL PO SCH (08:05)
--- NOTE | 2019-04-22 08:12 | NUR ---
Patient up in bed, eating break fast, denies any pain or SOB, call ernst in reach, Bed alarm ON
[2019-04-22] MEDS: AZITHROMYCIN 500MG/NS 250 ML 250 ML IV SCH (08:57)
--- NOTE | 2019-04-22 13:13 | Progress Note ---
DATE: 04/22/2019 Medicine Progress Note SUBJECTIVE: The patient is doing well today with no complaints. He is actually much more alert, awake, oriented on examination than any other day. He was eating his lunch. I reviewed the case with the daughter at bedside as well. PHYSICAL EXAMINATION: VITAL SIGNS: Temperature 98.3, pulse 76, respiratory rate 17, blood pressure 159/84, pulse ox 99% on room air. GENERAL: Not in acute distress. Alert and oriented x3. Cooperative on examination. HEENT: Head is normocephalic and atraumatic. Eyes; pupils are equal, round, and reactive to light bilaterally. Extraocular movements are intact bilaterally. Throat; no evidence of erythema or exudates in the posterior pharynx. Has poor dentition. NECK: Supple. Good range of motion. PULMONARY: Clear to auscultation bilaterally. No wheezing, no rales, no rhonchi, no crackles appreciated. CARDIOVASCULAR: Positive S1, S2. No murmurs, rubs, or gallops appreciated. ABDOMEN: Soft, nondistended, and nontender to palpation. Bowel sounds present. MUSCULOSKELETAL: Strength is 5/5 throughout. No evidence of muscles deficits on examination. No weakness appreciated. NEUROLOGICAL: Cranial nerves II through XII grossly intact. No evidence of neurological deficits on exam. SKIN: Intact. Warm to touch. Good cap refill. PSYCHIATRIC: Normal affect and mood. EXTREMITIES: No edema. Good range of motion throughout. LABORATORY DATA: None today. MICROBIOLOGY: Urine cultures were negative. IMAGING STUDIES: None. IMPRESSION: 1. Metabolic encephalopathy secondary to underlying baseline dementia, now improved. 2. Community-acquired pneumonia. 3. Hypertension. 4. Type 2 diabetes. 5. Baseline dementia. PLAN: At this time, imaging studies were found to be negative. Cultures were negative. Continue with IV antibiotics for now. [facility]ending [facility] and if he gets accepted today he will be discharged on oral Levaquin to continue his antibiotics for his pneumonia. Otherwise, he is doing well with no other issues. Discussed plan of care with nursing staff. MD CHITO Blandon/PUSHPA /[id number]
--- NOTE | 2019-04-22 13:46 | NUR ---
PT HAS BEEN DENIED FOR SNF AT THIS TIME DUE TO DOCUMENTATION STATING SITTER STILL IN PLACE AND PRN, WILL HAVE TO RESTART WHEN PT HAS NOT HAD A SITTER FOR 48 HOURS. LET NURSE PAUL KNOW PT DENIED FOR CARE AT THIS TIME.
[2019-04-22] MEDS: ENOXAPARIN SOD INJ 40 MG/0.4 ML SYR SC SCH (18:06)
--- NOTE | 2019-04-22 18:50 | NUR ---
patient resting in bed, no distress noted, call light in reach
--- NOTE | 2019-04-22 20:09 | NUR ---
Received change of shift report from AM nurse. Walking rounds completed.
[2019-04-22] MEDS: SIMVASTATIN 40 MG TAB PO SCH (21:00)
[2019-04-23] VITALS (7 sets, daily range): BP systolic 124–170; BP diastolic 64–84
--- NOTE | 2019-04-23 | NUR ---
Patient sitting up in bed. AAOx3 with periods of confusion. IV intact to right hand 20G. Tele SR. O2 at 3L n/c. Continue monitor.
--- NOTE | 2019-04-23 04:35 | NUR ---
Patient resting quitly at this time. No noted pain or discomfort noted.
[2019-04-23 05:52] LABS: BASOPHILS % 0.5 % (0.0-1.0); EOSINOPHILS # (AUTO) 0.3 (0.0-0.4); EOSINOPHILS % 8.6 % (0.0-6.0); HEMATOCRIT 26.1 % (38.2-49.6); LYMPHOCYTES # (AUTO) 0.9 (1.0-3.2); LYMPHOCYTES % 23.8 % (18.0-39.1); MEAN CORPUSCULAR HEMOGLOBIN 31.3 pg (28-32); MEAN CORPUSCULAR VOLUME 94.9 fL (81-99); MONOCYTES # (AUTO) 0.4 (0.2-0.8); MONOCYTES % 11.3 % (4.4-11.3); NEUTROPHILS # (AUTO) 2.1 (2.1-6.9); NEUTROPHILS % 55.5 % (38.7-80.0); PLATELET COUNT 129 x10e3/uL (140-360); RED BLOOD COUNT 2.75 x10e6/uL (4.3-5.7); RED CELL DISTRIBUTION WIDTH 13.8 % (11.7-14.4)
[2019-04-23 06:04] LABS: HEMOGLOBIN 8.6 g/dL (14.0-18.0)
[2019-04-23 06:16] LABS: ANION GAP 12.7 mmol/L (8-16); CALCIUM 8.6 mg/dL (8.4-10.2); CREATININE, SERUM 1.2 mg/dL (0.72-1.25); POTASSIUM 3.7 mmol/L (3.5-5.1)
--- NOTE | 2019-04-23 07:00 | NUR ---
RECEIVED PATIENT IN REPORT. NO PAIN REPORTED. NO S&S OF DISTRESS NOTED. PATIENT REPORTS WANTING TO SLEEP MORE. BED LOCKED IN LOWEST POSITION, SIDE RAILS UPX2, CALL LIGHT IN REACH.
[2019-04-23 07:15] LABS: LYMPHOCYTES % (MANUAL) 24 % (19-48); MONOCYTES % (MANUAL) 21 % (3.4-9.0); NEUTROPHILS % (MANUAL) 55 % (40-74)
[2019-04-23 07:17] LABS: PLATELET ESTIMATE SLIGHTLY DECREASED; PLATELET MORPHOLOGY COMMENT RARE EDTA CLUMPING; RBC MORPHOLOGY COMMENT NORMAL
[2019-04-23] MEDS: CEFTRIAXONE SOD 1 GM/NS 50 ML 50 ML IV SCH ×2 (07:59→22:04)
[2019-04-23] MEDS: METOPROLOL SUCCINATE 50 MG TAB XL PO SCH (09:09)
[2019-04-23] MEDS: ASPIRIN 81 MG CHEW TAB PO SCH (09:09)
[2019-04-23] MEDS: FAMOTIDINE 20 MG TAB PO SCH ×2 (09:09→17:36)
[2019-04-23] MEDS: PRIMIDONE 250 MG TABLET PO SCH ×2 (09:09→17:36)
[2019-04-23] MEDS: NIFEDIPINE CR 30 MG TAB PO SCH ×2 (09:09→17:36)
[2019-04-23] MEDS: AZITHROMYCIN 500MG/NS 250 ML 250 ML IV SCH (09:09)
--- NOTE | 2019-04-23 09:45 | NUR ---
PT IN ROOM TO WORK WITH PATIENT AT THIS TIME. WILL SIT PATIENT UP IN CHAIR AT END OF THERAPY.
--- NOTE | 2019-04-23 12:05 | NUR ---
MD REYNOLDS IN WITH PATIENT.
--- NOTE | 2019-04-23 13:21 | NUR ---
CALLED ROSA AT [facility], SPOKE WITH HER ABOUT RESTARTING THE EVAL AND LET HER KNOW THAT KIRSTIN WILL BE WORKING TOMORROW IF THE PT QUALIFIES. PRINTED UPDATED CLINICALS AND SHE WILL COME PUBLIC HEALTH TECHNICIAN. WILL COMPLETE RTF AND PASRR FOR PT. TRANSFER.
--- NOTE | 2019-04-23 14:34 | Progress Note ---
DATE: 04/23/2019 Medicine Progress Note SUBJECTIVE: The patient is doing well today with no complaints. He is actually sitting in the chair, eating, alert oriented, talking to me. He has some confusion, but likely at his baseline. PHYSICAL EXAMINATION: VITAL SIGNS: Temperature is 96.4, pulse 86, respiratory rate is 17, blood pressure 142/69, pulse ox 96% on room air. GENERAL: Not in acute distress. Alert and oriented x3. Cooperative on examination. HEENT: Head is normocephalic and atraumatic. Eyes; pupils are equal, round, and reactive to light bilaterally. Extraocular movements are intact bilaterally. Throat; no evidence of erythema or exudates in the posterior pharynx. Has poor dentition. NECK: Supple. Good range of motion. PULMONARY: Clear to auscultation bilaterally. No wheezing, no rales, no rhonchi, no crackles appreciated. CARDIOVASCULAR: Positive S1, S2. No murmurs, rubs, or gallops appreciated. ABDOMEN: Soft, nondistended, and nontender to palpation. Bowel sounds present. MUSCULOSKELETAL: Strength is 5/5 throughout. No evidence of muscles deficits on examination. No weakness appreciated. NEUROLOGICAL: Cranial nerves II through XII grossly intact. No evidence of neurological deficits on exam. SKIN: Intact. Warm to touch. Good cap refill. PSYCHIATRIC: Normal affect and mood. EXTREMITIES: No edema. Good range of motion throughout. LABORATORY DATA: CBC, reviewed and stable. Chemistry, reviewed and stable. MICROBIOLOGY: None. IMAGING STUDIES: None. IMPRESSION: 1. Metabolic encephalopathy likely secondary to baseline dementia, now improving. 2. Community-acquired pneumonia. 3. Hypertension. 4. Type 2 diabetes. 5. Baseline dementia. PLAN: The patient's imaging studies were all negative. Cultures were negative. He is on IV antibiotics for now. We will discharge on oral Levaquin. At this time, we are just waiting on [facility] facility for placement, once he has been approved, he has been cleared to be discharged. He is otherwise stable and is doing tremendously well compared to his admission. MD CHITO Blandon/PUSHPA /[id number]
--- NOTE | 2019-04-23 16:42 | NUR ---
PATIENT SLEEPING AT THIS TIME. RESPIRATIONS EVEN AND NON-LABORED.
--- NOTE | 2019-04-23 17:07 | NUR ---
Nutrition Screen Note RD Recommendation for Physician: - Continue 1800 alda carb control diet Plan of Care: RD following, monitoring for tolerance and adequacy Nutrition reason for involvement: LOS Primary Diagnose(s): COPD, PNA, renal insufficiency PMH: HTN, DM2, frequent falls Ht: 65 in Wt: 120 lb BMI: 20 kg/m2 IBW: [address] Assessment: (04/23) 83 YOM admitted for COPD and PNA with baseline confusion and frequent falls at home. Pt evaluated today for LOS. Pt sleeping at time of visit, unable to wake, and no family at bedside. Per chart pt with 75-100% meal intake and no GI distress reported. No wt loss reported at admit. Pt discussed during am rounds, plan for SNF placement. Chart reviewed. Labs and meds reviewed. Will monitor and continue to follow. Current Diet: 1800 ADA Malnutrition Evaluation (date of eval) The patient does not meet criteria for a specified degree of malnutrition at this time. Will re-evaluate at follow-up as appropriate. Diet Education Needs Assessment: Diet education not indicated. Nutrition Care Level: Low Signed: Julianne Rivera RD, LD, [facility]
[2019-04-23] MEDS: ENOXAPARIN SOD INJ 40 MG/0.4 ML SYR SC SCH (17:36)
--- NOTE | 2019-04-23 17:45 | NUR ---
PATIENT SITTING UP IN BED EATING DINNER. DAUGHTER AT BEDSIDE. DAUGHTER REQUESTS SHE BE CALLED ONCE SNF PLACEMENT IS ACCEPTED AND WHEN HE IS ABOUT TO BE TRANSFERRED SO SHE CAN BE THERE WHEN HE ARRIVES. QUESTIONS ANSWERED. PATIENT EATING SLOWLY, BUT WELL, NO COUGHING OR THROAT CLEARING NOTED. NO S&S OF DISTRESS NOTED.
--- NOTE | 2019-04-23 19:30 | NUR ---
Patient visited in room during nursing rounds. Patient alert and oriented x3. Pt diapered due to incontinence. Pt is DNR care status. On 2L NC. Call ernst within reach. Will monitor closely.
[2019-04-23] MEDS: SIMVASTATIN 40 MG TAB PO SCH (22:04)
[2019-04-24] VITALS (8 sets, daily range): BP systolic 147–166; BP diastolic 68–86
[2019-04-24] MEDS ORDERED: CEFTRIAXONE SOD 1 GM/NS 50 ML 50 ML IV SCH (00:45)
--- NOTE | 2019-04-24 07:20 | NUR ---
PATIENT IS AWAKE AND IN STABLE CONDITION WITH NO S/S OF RESPIRATORY DISTRESS. PATIENT DENIES PAIN. SCAB NOTED TO RIGHT CALF. DIAPER APPLIED. BED ALARM ON. CALL LIGHT IS WITHIN REACH, PATIENT INSTRUCTED TO CALL FOR ASSISTANCE NEEDED.
[2019-04-24] MEDS: AZITHROMYCIN 500MG/NS 250 ML 250 ML IV SCH (08:02)
[2019-04-24] MEDS: PRIMIDONE 250 MG TABLET PO SCH ×2 (08:08→16:37)
[2019-04-24] MEDS: ASPIRIN 81 MG CHEW TAB PO SCH (08:08)
[2019-04-24] MEDS: FAMOTIDINE 20 MG TAB PO SCH ×2 (08:08→16:37)
[2019-04-24] MEDS: NIFEDIPINE CR 30 MG TAB PO SCH ×2 (08:10→16:37)
[2019-04-24] MEDS: METOPROLOL SUCCINATE 50 MG TAB XL PO SCH (08:10)
[2019-04-24] MEDS: CEFTRIAXONE SOD 1 GM/NS 50 ML 50 ML IV SCH ×2 (09:39→20:54)
[2019-04-24] MEDS: ENOXAPARIN SOD INJ 40 MG/0.4 ML SYR SC SCH (16:37)
--- NOTE | 2019-04-24 16:45 | Progress Note ---
DATE: 04/24/2019 Medicine Progress Note SUBJECTIVE: The patient is doing well today with no complaints. He is sitting in a chair. No other issues overnight. OBJECTIVE: VITAL SIGNS: Afebrile and normotensive. Respiratory rate is good. GENERAL: Not in acute distress. Alert and oriented x3. Cooperative on examination. HEENT: Head; normocephalic, atraumatic. Eyes; pupils are equal, round, and reactive to light bilaterally. Extraocular movements intact bilaterally. Throat; no evidence of erythema or exudates in the posterior pharynx. Has poor dentition. NECK: Supple. Good range of motion. PULMONARY: Clear to auscultation bilaterally. No wheezing, rhonchi, or crackles appreciated. CARDIOVASCULAR: Positive S1 and S2. No murmurs, rubs, or gallops appreciated. ABDOMEN: Soft, nondistended, and nontender to palpation. Bowel sounds present. MUSCULOSKELETAL: Strength is 5/5 throughout. No evidence of any muscle deficits on examination. No weakness appreciated. NEUROLOGIC: Cranial nerve II through XII grossly intact. No evidence of any neurological deficits on exam. SKIN: Intact. Warm to touch. Good cap refill. PSYCHIATRIC: Normal affect and mood. EXTREMITIES: No edema. Good range of motion throughout. LABORATORY DATA: Reviewed and stable. IMPRESSION: 1. Metabolic encephalopathy secondary to baseline dementia and now the infection improving. 2. Community-acquired pneumonia. 3. Hypertension. 4. Type 2 diabetes. 5. Baseline dementia. PLAN: Once again, all imaging studies were negative. Cultures were negative. He is on IV antibiotics. Awaiting for [facility] placement. He will be discharged on oral Levaquin once improved. Discussed plan of care with nursing staff. MD CHITO Blandon/MODL /[id number]
--- NOTE | 2019-04-24 19:16 | NUR ---
PATIENT SITTING IN THE RECLINER- IN STABLE CONDITION WITH NO S/S OF RESPIRATORY DISTRESS. NO PAIN VOICED. TELEMETRY APPLIED. DAUGHTER AND GRANDSON PRESENT IN THE ROOM. CALL LIGHT IS WITHIN REACH, PATIENT INSTRUCTED TO CALL FOR ASSISTANCE NEEDED. BEDSIDE REPORT GIVEN TO ONCOMING NURSE.
--- NOTE | 2019-04-24 19:22 | NUR ---
PT IS RESTING IN THE RECLINER WATCHING TELEVISION WITH FAMILY AT BEDSIDE. RESPIRATION IS EVEN AND UNLABORED, NO DISTRESS NOTED. BED IN THE LOWEST POSITION, LOCKED, AND CALL LIGHT WITHIN REACH. WILL CONTINUE TO MONITOR.
[2019-04-24] MEDS: SIMVASTATIN 40 MG TAB PO SCH (20:54)
[2019-04-25] VITALS (7 sets, daily range): BP systolic 136–188; BP diastolic 65–88
[2019-04-25 06:07] LABS: BASOPHILS % 0.7 % (0.0-1.0); EOSINOPHILS # (AUTO) 0.3 (0.0-0.4); EOSINOPHILS % 6.9 % (0.0-6.0); HEMATOCRIT 25.6 % (38.2-49.6); HEMOGLOBIN 8.5 g/dL (14.0-18.0); LYMPHOCYTES # (AUTO) 0.9 (1.0-3.2); LYMPHOCYTES % 20.8 % (18.0-39.1); MEAN CORPUSCULAR HEMOGLOBIN 31.5 pg (28-32); MEAN CORPUSCULAR HGB CONC 33.2 g/dL (31-35); MEAN CORPUSCULAR VOLUME 94.8 fL (81-99); MONOCYTES # (AUTO) 0.6 (0.2-0.8); MONOCYTES % 12.2 % (4.4-11.3); NEUTROPHILS # (AUTO) 2.7 (2.1-6.9); PLATELET COUNT 150 x10e3/uL (140-360); RED CELL DISTRIBUTION WIDTH 13.8 % (11.7-14.4)
[2019-04-25 06:28] LABS: BLOOD UREA NITROGEN 19 mg/dL (7-26); BUN/CREATININE RATIO 17 (6-25); CALCIUM 8.8 mg/dL (8.4-10.2); CARBON DIOXIDE 24 mmol/L (22-29); CHLORIDE 108 mmol/L (98-107); CREATININE, SERUM 1.13 mg/dL (0.72-1.25); EST GLOMERULAR FILTRATION RATE > 60 ML/MIN (60-); GLUCOSE 96 mg/dL (74-118); SODIUM 142 mmol/L (136-145)
--- NOTE | 2019-04-25 07:35 | NUR ---
PATIENT IS AWAKE AND IN STABLE CONDITION WITH NO S/S OF RESPIRATORY DISTRESS. NO PAIN VOICED. TELEMETRY APPLIED. DIAPER APPLIED. BED ALARM ON. CALL LIGHT IS WITHIN REACH, PATIENT INSTRUCTED TO CALL FOR ASSISTANCE NEEDED.
[2019-04-25] MEDS: NIFEDIPINE CR 30 MG TAB PO SCH ×2 (08:18→16:52)
[2019-04-25] MEDS: AZITHROMYCIN 500MG/NS 250 ML 250 ML IV SCH (08:18)
[2019-04-25] MEDS: ASPIRIN 81 MG CHEW TAB PO SCH (08:18)
[2019-04-25] MEDS: PRIMIDONE 250 MG TABLET PO SCH ×2 (08:18→16:52)
[2019-04-25] MEDS: FAMOTIDINE 20 MG TAB PO SCH ×2 (08:18→16:52)
[2019-04-25] MEDS: METOPROLOL SUCCINATE 50 MG TAB XL PO SCH (08:19)
[2019-04-25] MEDS: CEFTRIAXONE SOD 1 GM/NS 50 ML 50 ML IV SCH ×2 (10:22→20:42)
[2019-04-25] MEDS: ENOXAPARIN SOD INJ 40 MG/0.4 ML SYR SC SCH (16:52)
--- NOTE | 2019-04-25 17:55 | Progress Note ---
DATE: 04/25/2019 Medicine Progress Note SUBJECTIVE: The patient is doing well today with no complaints. He is sitting in a chair, eating his lunch. Discussed case with nursing staff. No concern at this time. Still awaiting [facility]. PHYSICAL EXAMINATION: VITAL SIGNS: Temperature is 97.9, pulse 82, respiratory rate is 20, blood pressure is 167/79, this was at 8 o'clock in the morning, pulse ox 93% on room air. GENERAL: Not in acute distress. Alert and oriented x3. Cooperative on examination. HEENT: Head is normocephalic and atraumatic. Eyes; pupils are equal, round, and reactive to light bilaterally. Extraocular movements are intact bilaterally. Throat; no evidence of erythema or exudates in the posterior pharynx. Has poor dentition. NECK: Supple. Good range of motion. PULMONARY: Clear to auscultation bilaterally. No wheezing, no rales, no rhonchi, no crackles appreciated. CARDIOVASCULAR: Positive S1, S2. No murmurs, rubs, or gallops appreciated. ABDOMEN: Soft, nondistended, and nontender to palpation. Bowel sounds present. MUSCULOSKELETAL: Strength is 5/5 throughout. No evidence of any muscles deficits on examination. No weakness appreciated. NEUROLOGICAL: Cranial nerves II through XII grossly intact. No evidence of any neurological deficits on exam. SKIN: Intact. Warm to touch. Good cap refill. PSYCHIATRIC: Normal affect and mood. EXTREMITIES: No edema. Good range of motion throughout. LABORATORY DATA: CBC, reviewed and stable. Chemistry, reviewed and stable. IMPRESSION: 1. Metabolic encephalopathy secondary to underlying dementia, now improving. 2. Community-acquired pneumonia. 3. Hypertension. 4. Type 2 diabetes. 5. Baseline dementia. PLAN: Imaging studies negative. Cultures are negative. Continue with IV antibiotics. Pending for the [facility] placement, which hopefully will occur tomorrow. MD CHITO Blandon/MODL /[id number]
--- NOTE | 2019-04-25 19:09 | NUR ---
PATIENT IS RESTING IN BED- IN STABLE CONDITION WITH NO S/S OF RESPIRATORY DISTRESS. NO PAIN VOICED. TELEMETRY AND DIAPER APPLIED. BED ALARM ON. FAMILY MEMBERS PRESENT IN ROOM. CALL LIGHT IS WITHIN REACH, PATIENT INSTRUCTED TO CALL FOR ASSISTANCE NEEDED. BEDSIDE REPORT GIVEN TO ONCOMING NURSE.
--- NOTE | 2019-04-25 19:26 | NUR ---
PT IS RESTING IN BED WITH FAMILY AT BEDSIDE. RESPIRATION IS EVEN AND UNLABORED, NO DISTRESS NOTED. BED IN THE LOWEST POSITION, LOCKED, BED ALARM ON, AND CALL LIGHT WITHIN REACH. WILL CONTINUE TO MONITOR.
[2019-04-25] MEDS: HYDRALAZINE HCL 20 MG/ML VIAL IV PRN (19:55)
[2019-04-25] MEDS: SIMVASTATIN 40 MG TAB PO SCH (20:42)
[2019-04-26 03:51] VITALS: BP 154/69
--- NOTE | 2019-04-26 06:26 | NUR ---
PT REFUSE NUMEROUS ATTEMPT OF A SHOWER OR SPONGE BATH. WILL CONTINUE TO MONITOR.
[2019-04-26 07:45] VITALS: BP 154/79
--- NOTE | 2019-04-26 07:45 | NUR ---
PATIENT IN BED RESTING WITH EYES CLOSED, NO RESPIRATORY DISTRESS NOTED. BED IN LOWER POSITION AND LOCKED, CALL LIGHT AT REACH.
[2019-04-26 08:44] VITALS: BP 154/79
--- NOTE | 2019-04-26 09:03 | NUR ---
SPOKE WITH DAUGHTER MARGARITO, LET KNOW FACILITY DENIED PT FOR SNF, LET HER KNOW A NEW SELECTION FOR SNF IS REQUIRED. SHE WILL LOOK UP AND LET ME KNOW.
--- NOTE | 2019-04-26 09:18 | NUR ---
MARGARITO CALLED BACK AND WANTS TO TRY [facility], WILL FAX CLINICALS TO [phone]
[2019-04-26] MEDS: AZITHROMYCIN 500MG/NS 250 ML 250 ML IV SCH (09:23)
[2019-04-26] MEDS: ASPIRIN 81 MG CHEW TAB PO SCH (09:23)
[2019-04-26] MEDS: FAMOTIDINE 20 MG TAB PO SCH ×2 (09:23→17:27)
[2019-04-26] MEDS: NIFEDIPINE CR 30 MG TAB PO SCH ×2 (09:23→17:28)
[2019-04-26] MEDS: METOPROLOL SUCCINATE 50 MG TAB XL PO SCH (09:23)
[2019-04-26] MEDS: PRIMIDONE 250 MG TABLET PO SCH ×2 (09:23→17:27)
[2019-04-26] MEDS: CEFTRIAXONE SOD 1 GM/NS 50 ML 50 ML IV SCH (10:09)
--- NOTE | 2019-04-26 11:29 | NUR ---
DESPITE PT BEING ALERT AND ORIENTED FOCUSED CARE STILL DENYING PT D/W SON FORWARDING INFORMATION TO [facility]
--- NOTE | 2019-04-26 11:55 | NUR ---
SITTING UP IN BED, ASSISTED WITH LUNCH TRAY. BED IN LOWER POSITION, CALL LIGHT AT REACH.
[2019-04-26 12:28] VITALS: BP 138/69
--- NOTE | 2019-04-26 15:45 | Progress Note ---
DATE: 04/26/2019 Medicine Progress Note SUBJECTIVE: The patient is doing well today with no complaints. He is alert and oriented x3 with no other issues. Pending custodial facility placement. PHYSICAL EXAMINATION: VITAL SIGNS: He is afebrile, normotensive. Respiratory rate is good. GENERAL: Not in acute distress. Alert and oriented x3. Cooperative on examination. HEENT: Head is normocephalic and atraumatic. Eyes; pupils are equal, round, and reactive to light bilaterally. Extraocular movements are intact bilaterally. Throat; no evidence of erythema or exudates in the posterior pharynx. Has poor dentition. NECK: Supple. Good range of motion. PULMONARY: Clear to auscultation bilaterally. No wheezing, no rales, no rhonchi, no crackles appreciated. CARDIOVASCULAR: Positive S1, S2. No murmurs, rubs, or gallops appreciated. ABDOMEN: Soft, nondistended, and nontender to palpation. Bowel sounds present. MUSCULOSKELETAL: Strength is 5/5 throughout. No evidence of muscles deficits on examination. No weakness appreciated. NEUROLOGICAL: Cranial nerves II through XII grossly intact. No evidence of neurological deficits on exam. SKIN: Intact. Warm to touch. Good cap refill. PSYCHIATRIC: Normal affect and mood. EXTREMITIES: No edema. Good range of motion throughout. LABORATORY DATA: None today. IMPRESSION: 1. Metabolic encephalopathy, secondary to underlying dementia, now improving. 2. Community-acquired pneumonia. 3. Hypertension. 4. Type 2 diabetes. 5. Baseline dementia. PLAN: At this time, imaging studies were found to be negative. Cultures were negative as well. He is on IV antibiotics. He will be discharged on oral antibiotics. Pending custodial facility placement. Otherwise, once accepted, he is ready for discharge. MD CHITO Blandon/PUSHPA /[id number]
--- NOTE | 2019-04-26 15:45 | NUR ---
PATIENT AMBULATING IN HALLWAY WITH PHYSICAL THERAPY, NO RESPIRATORY DISTRESS OBSERVED. WILL CLOSELY MONITOR.
[2019-04-26 16:00] VITALS: BP 165/76
[2019-04-26] MEDS: ENOXAPARIN SOD INJ 40 MG/0.4 ML SYR SC SCH (17:28)
[2019-04-26 20:00] VITALS: BP 136/65
[2019-04-26] MEDS: SIMVASTATIN 40 MG TAB PO SCH (20:48)
--- NOTE | 2019-04-26 22:00 | NUR ---
Patient AAOx2-3. Pt telemetry SR #1. Pain denies pain at this time.IV intact to right wrist 20G HL. Patient encourage fluids. SR up x2. Bed down lowest. Bed alarm on.
--- NOTE | 2019-04-26 22:11 | NUR ---
Received change of shift report from AM nurse. Walking rounds completed.
[2019-04-27] VITALS: BP 153/73
--- NOTE | 2019-04-27 03:39 | NUR ---
Patient resting quitly at this time. No sign of pain or discomfort at this time. Patient voided in urinal 300cc dark yellow urine. Continue monitor at this time.
[2019-04-27 04:00] VITALS: BP 149/71
--- NOTE | 2019-04-27 07:08 | NUR ---
pt alert resp even and unlabored at this time no distress noted. pt able to make needs known, call light in reach.
--- NOTE | 2019-04-27 07:38 | NUR ---
PT ACCEPTED TO [facility] [id number] [place] [id number] CALL REPORT TO [phone] RM [address] JAVIER RTF COMPLETED AND GIVEN TO NURSE TO COMPLETE TRANSFER THIS MORNING
[2019-04-27 08:33] VITALS: BP 160/77
[2019-04-27] MEDS: FAMOTIDINE 20 MG TAB PO SCH (09:42)
[2019-04-27] MEDS: ASPIRIN 81 MG CHEW TAB PO SCH (09:42)
[2019-04-27] MEDS: PRIMIDONE 250 MG TABLET PO SCH (09:42)
[2019-04-27] MEDS: NIFEDIPINE CR 30 MG TAB PO SCH (09:43)
[2019-04-27] MEDS: METOPROLOL SUCCINATE 50 MG TAB XL PO SCH (09:43)
--- NOTE | 2019-04-27 11:03 | NUR ---
PT DISCHARGED TO [facility] VIA AMBULANCE SERVICE.
--- NOTE | 2019-04-29 01:15 | Discharge Summary ---
FINAL DISCHARGE DIAGNOSES: 1. Metabolic encephalopathy secondary to underlying community-acquired pneumonia, now resolved. 2. Community-acquired pneumonia. 3. Baseline dementia. 4. Hypertension. 5. Type 2 diabetes. CONSULTANTS: None. PHYSICAL EXAMINATION: VITAL SIGNS: Temperature is 97.6, pulse 76, respiratory rate is 18, blood pressure is 160/77, and pulse ox 98% on room air. LAB FINDINGS: Show white count 4.2, hemoglobin 8.5, hematocrit is 25, and platelets of 150. Coagulation; PT 13, INR 0.95, PTT 32. Chemistry; sodium 142, potassium is 4, chloride is 108, bicarbonate is 24, anion gap of 14, BUN is 19, creatinine is 1.1, glucose is 115, calcium is 8.8, total bilirubin is 0.2, AST 33, ALT 34. CK was 63. His troponins were negative x3. Albumin was 3.4 and TSH is 4.3. Urinalysis was negative for any UTI. Urine culture was negative. IMAGING STUDIES: Chest x-ray, airspace opacity in the left lung base with likely small left pleural effusion. This likely represents pneumonia. This is sounding pleural effusion. CT brain was found to be negative for any acute findings. Pelvic CT shows no acute abnormalities in the pelvis. CT of the brain was found to be negative. CT of the face found to be negative. MRI of the brain shows no acute abnormality. Moderate chronic microvascular ischemic changes of white matter and moderate diffuse volume loss. HOSPITAL COURSE: This is an 83-year-old male, who came into the ED, brought in by his daughter due to worsening encephalopathy. The patient apparently was confused for several days prior to arrival. On imaging studies, he was found to have community-acquired pneumonia and was treated accordingly with IV antibiotic therapy. His microbiology and urine culture were found to be negative. After discussing with the daughter at bedside, she was concerned that he may have had a possible stroke-like symptoms at home. CT brain was negative. MRI of the brain was found to be negative. After initiation of IV antibiotics, the patient improved, was alert, awake, oriented x3, and talking and communicative on examination. He was discharged on oral antibiotics as well. His hospital course was prolonged and waiting for insurance approval for [facility]. I believe he also has baseline dementia, likely leading to his underlying confusion at times. Otherwise, the patient is doing well, had no other issues. [facility], hence he will be discharged. On the day of discharge, vital signs were stable, labs reviewed and stable. The patient is seen and evaluated, examined thoroughly on the day of discharge with no other complaints. The patient verbalized understanding and agreed to plan of care to follow up as an outpatient with the PCP in 1 week for further management and care. MEDICATIONS: See med reconciliation form. DISPOSITION: Home. CONDITION: Stable. DIET: Heart healthy. In the event of any worsening symptoms, the patient was advised to come back to the ED for further evaluation. Discharge summary took greater than 35 minutes. MD CHITO Blandon/PUSHPA /[id number]
== END 2019-04-27 11:02 | DRG 193 ==
LOC: ER 16:46 → ERHOLD 18:57 → MED/SURG3 22:06
PROVIDERS: ADMIT Internal Medicine; ATTEND Internal Medicine
DX: J18.9 Pneumonia, unspecified organism (principal); G93.41 Metabolic encephalopathy; F03.91 Unspecified dementia, unspecified severity, with behavioral disturbance; E11.9 Type 2 diabetes mellitus without complications; I10 Essential (primary) hypertension; Z66 Do not resuscitate; R29.6 Repeated falls
CPT/HCPCS: 36415; 70450; 70486; 70551; 71045; 72192; 80048; 80053; 81001; 82550; 82553; 82948; 83880; 84443; 84484; 85025; 85610; 85730; 87086; 93005; 96361; 97139; 99285; J0360; J0456; J0696; J1650; J7030; J7050